=== PATIENT | female | born 1980 | race Asian ===

== ENCOUNTER 2020-12-26 13:57 | Emergency (ER) | payer BC ==
[2020-12-26 14:15] VITALS: BP 98/72; PULSE 79; RESP 18; TEMP 99.8
[2020-12-26] MEDS ORDERED: DEXAMETHASONE SOD PHOSPHATE 10 MG/ML 1 ML VIAL IM STA (14:32)
[2020-12-26] MEDS ORDERED: ACETAMINOPHEN TAB 325 MG TAB PO STA (14:32)
[2020-12-26] MEDS ORDERED: IBUPROFEN 600 MG TAB PO STA (14:32)
--- NOTE | 2020-12-26 15:36 | XR ---
EXAMINATION TYPE: XR chest 2V DATE OF EXAM: 12/26/2020 COMPARISON: NONE HISTORY: Cough TECHNIQUE: 2 views FINDINGS: There is patchy bilateral pulmonary interstitial and airspace infiltrates. Heart and medias tinum are normal. There is no pleural effusion. Bony thorax is intact. IMPRESSION: Bilateral patchy pneumonia. Normal heart.
--- NOTE | 2020-12-26 15:56 | ED ---
URI HPI - General Chief Complaint: Upper Respiratory Infection Stated Complaint: cough Time Seen by Provider: 12/26/20 14:31 Source: patient, RN notes reviewed Mode of arrival: ambulatory Limitations: no limitations - History of Present Illness Initial Comments: Patient is a 40-year-old female that presents to the emergency department Covid- positive for the past along the 12 days patient not she's had monoclonal antibodies in the past. She notes that she can emergency room to get symptom medic control of her cough. Patient was she's tried Tessalon Perles Robitussin everything [id number]. She notes no relief. She notes when she takes deep breath she has a tight feeling. She denied any chest pain. She denied any headache nausea vomiting diarrhea constipation fatigue chills. - Related Data Previous Rx's Medication Instructions Recorded Levofloxacin [Levaquin] 500 mg PO DAILY #10 tab 12/26/20 predniSONE 50 mg PO DAILY #5 tab 12/26/20 Allergies Allergy/AdvReac Type Severity Reaction Status Date / Time gluten AdvReac Nausea & Verified 12/26/20 14:15 Vomiting Milk Containing Products AdvReac Nausea & Verified 12/26/20 14:15 [Dairy] Vomiting Review of Systems ROS Statement: Those systems with pertinent positive or pertinent negative responses have been documented in the HPI. ROS Other: All systems not noted in ROS Statement are negative. Past Medical History Past Medical History: Thyroid Disorder History of Any Multi-Drug Resistant Organisms: None Reported Additional Past Surgical History / Comment(s): cornea transplant Past Psychological History: No Psychological Hx Reported Smoking Status: Never smoker Past Alcohol Use History: None Reported Past Drug Use History: None Reported General Exam Limitations: no limitations General appearance: alert, in no apparent distress Head exam: Present: atraumatic, normocephalic, normal inspection Eye exam: Present: normal appearance, PERRL, EOMI. Absent: scleral icterus, conjunctival injection, periorbital swelling ENT exam: Present: normal exam, mucous membranes moist Neck exam: Present: normal inspection Respiratory exam: Present: normal lung sounds bilaterally. Absent: respiratory distress, wheezes, rales, rhonchi, stridor Cardiovascular Exam: Present: regular rate, normal rhythm, normal heart sounds. Absent: systolic murmur, diastolic murmur, rubs, gallop, clicks GI/Abdominal exam: Present: soft, normal bowel sounds. Absent: distended, tenderness, guarding, rebound, rigid Extremities exam: Present: normal inspection, full ROM, normal capillary refill. Absent: tenderness, pedal edema, joint swelling, calf tenderness Neurological exam: Present: alert, oriented X3 Psychiatric exam: Present: normal affect, normal mood Skin exam: Present: warm, dry, intact, normal color. Absent: rash Course Vital Signs 12/26/20 14:11 Temperature 99.8 F H Pulse Rate 79 Respiratory 18 Rate Blood Pressure 98/72 O2 Sat by Pulse 97 Oximetry Medical Decision Making - Medical Decision Making 40-year-old male presenting with a cough was Covid-positive for 11 days. 10 mg of Decadron, chest x-ray ordered. Patient does not meet qualifications for monoclonal antibodies. Patient requesting steroid for home. Chest official bilateral infiltrates consistent with pneumonia. Antibiotics and steroids was sent to pharmacy. Case discussed with Dr. Riley, patient discharge home. - Radiology Data Radiology results: report reviewed, image reviewed Chest x-ray: Bilateral patchy pneumonia, normal heart. Disposition Clinical Impression: Pneumonia due to COVID-19 virus Disposition: HOME SELF-CARE Condition: Stable Instructions (If sedation given, give patient instructions): Coronavirus Disease 2019 (COVID-19) Additional Instructions: Please return to the Emergency Department if symptoms worsen or any other concerns. Prescriptions: predniSONE 50 mg PO DAILY #5 tab Is patient prescribed a controlled substance at d/c from ED?: No Referrals: Juwan Gonzales MD [Primary Care Provider] - 1-2 days Time of Disposition: 15:55
== END 2020-12-26 16:22 | disposition home or self-care (01) ==
LOC: EC 13:57
DX: U07.1 COVID-19 (principal); J12.82 Pneumonia due to coronavirus disease 2019; Z91.018 Allergy to other foods; Z91.011 Allergy to milk products
CPT/HCPCS: 71046; 99283; 96372; J1100

== ENCOUNTER → 2021-06-07 | Outpatient (CLI) | payer BC ==
--- NOTE | 2021-06-08 12:02 | MM ---
Reason for exam: screening (asymptomatic). Baseline mammogram. Physical Findings: A clinical breast exam by your physician is recommended on an annual basis and results should be correlated with mammographic findings. MG 3D Screening Mammo W/Cad Bilateral CC and MLO view(s) were taken. The breast tissue is extremely dense which could obscure a lesion on mammography. There are benign appearing round calcifications in the left breast. There is no discrete abnormality. ASSESSMENT: Benign, BI-RAD 2 RECOMMENDATION: Routine screening mammogram of both breasts in 1 year. Some advise bilateral ultrasound surveillance in patient with dense tissue.
== END | disposition home or self-care (01) ==
LOC: RADMAMWWP 07:03
PROVIDERS: ATTEND Obstetrics & Gynecology
DX: Z12.31 Encounter for screening mammogram for malignant neoplasm of breast (principal)
CPT/HCPCS: 77063; 77067

== ENCOUNTER → 2022-09-15 | Outpatient (CLI) | payer BC | END | disposition home or self-care (01) | LOC: LABWHC1 08:13 | PROVIDERS: ATTEND Nurse Practitioner | DX: I65.9 Occlusion and stenosis of unspecified precerebral artery (principal); E06.3 Autoimmune thyroiditis; L20.84 Intrinsic (allergic) eczema; R63.5 Abnormal weight gain; R53.82 Chronic fatigue, unspecified; T50.Z95A Adverse effect of other vaccines and biological substances, initial encounter | CPT/HCPCS: 36415; 84207 ==

== ENCOUNTER → 2023-04-01 | Outpatient (CLI) | payer BC ==
[2023-04-01 14:25] LABS: T4, Free (Free Thyroxine) 1.66 ng/dL (0.80-1.80)
== END | disposition home or self-care (01) ==
LOC: LABWHC1 08:34
PROVIDERS: ATTEND Internal Medicine Endocrinology, Diabetes & Metabolism
DX: E03.8 Other specified hypothyroidism (principal)
CPT/HCPCS: 36415; 84439; 84443; 84480

== ENCOUNTER → 2023-06-07 | Outpatient (CLI) | payer BC ==
[2023-06-07 15:44] LABS: Basophils # (A) 0.04 X 10*3/uL (0.00-0.10); Eosinophils # (A) 0.03 X 10*3/uL (0.04-0.35); Eosinophils % (A) 0.7 %; HCT 40.1 % (37.2-46.3); HGB 12.9 g/dL (12.0-15.0); Lymphocytes # (A) 1.21 X 10*3/uL (0.90-5.00); Lymphocytes % (A) 30.1 %; MCH 29.5 pg (27.0-32.0); MCHC 32.2 g/dL (32.0-37.0); MCV 91.6 FL (80.0-97.0); Mean Platelet Volume 11.5 FL (9.5-12.2); Monocytes # (A) 0.29 X 10*3/uL (0.20-1.00); Monocytes % (A) 7.2 %; NRBC Per 100 WBC 0 X 10*3/uL (0.00-0.01); Neutrophils # (A) 2.44 X 10*3/uL (1.80-7.70); Neutrophils % (A) 60.8 %; Platelet Count 255 X 10*3/uL (140-440); RBC 4.38 X 10*6/uL (4.10-5.20); RDW 13.1 % (11.5-14.5); WBC 4.02 X 10*3/uL (4.50-10.00)
[2023-06-07 15:58] LABS: Homocysteine 6.89 UMOL/L (4.00-14.00)
[2023-06-07 16:08] LABS: ALT 22 U/L (8-44); AST 18 U/L (13-35); Albumin 4.8 g/dL (3.8-4.9); Albumin/Globulin Ratio 1.85 Ratio (1.60-3.17); Alkaline Phosphatase 56 U/L (41-126); Blood Urea Nitrogen 18.8 mg/dL (9.0-27.0); C Reactive Protein, High Sens 0.265 mg/L (0.000-3.000); Carbon Dioxide 26.6 mmol/L (21.6-31.8); Chloride 103 mmol/L (96-109); Estradiol <20.0 pg/mL; Globulin 2.6 g/dL (1.6-3.3); Glucose 107 mg/dL (70-110); Sodium 141 mmol/L (135-145); T4, Free (Free Thyroxine) 1.43 ng/dL (0.80-1.80); Testosterone <10.00 ng/dL (9.01-47.94); Total Bilirubin 0.3 mg/dL (0.3-1.2); Total Protein 7.4 g/dL (6.2-8.2)
[2023-06-07 16:14] LABS: Progesterone 0.3 ng/mL
[2023-06-07 18:46] LABS: DHEA Sulfate 88.7 UG/DL (39.0-800.0)
== END | disposition home or self-care (01) ==
LOC: LABWHC1 09:30
PROVIDERS: ATTEND Nurse Practitioner
DX: L65.9 Nonscarring hair loss, unspecified (principal); E06.3 Autoimmune thyroiditis; K59.00 Constipation, unspecified; L20.84 Intrinsic (allergic) eczema; T50.Z95A Adverse effect of other vaccines and biological substances, initial encounter; R63.5 Abnormal weight gain; R53.82 Chronic fatigue, unspecified
CPT/HCPCS: 36415; 80053; 82306; 82533; 82627; 82670; 82728; 82746; 83036; 83090; 83525; 83735; 84140; 84144; 84402; 84403; 84439; 84443; 84481; 84482; 85025; 86141